=== PATIENT | male | born 1970 | race Caucasian/White ===

== ENCOUNTER → 2018-09-16 | Outpatient (CLI) | payer OTHER ==
[~2018-09-16] MED LIST: ALLEGRA30 MG PO; BENTYL 10 MG CA10 MG PO; PROTONIX PO
== END ==
LOC: M.CT 09:00
DX: Z13.6 Encounter for screening for cardiovascular disorders (principal); R91.1 Solitary pulmonary nodule

== ENCOUNTER → 2018-09-30 | Outpatient (CLI) | payer OTHER | LOC: M.CT 07:22 | DX: R91.1 Solitary pulmonary nodule (principal); J98.4 Other disorders of lung ==

== ENCOUNTER → 2019-03-26 | Outpatient (CLI) | payer OTHER | LOC: M.CT 07:57 | DX: D71 Functional disorders of polymorphonuclear neutrophils (principal); R91.8 Other nonspecific abnormal finding of lung field ==

== ENCOUNTER → 2020-10-10 | Outpatient (CLI) | payer OTHER | LOC: M.CT 12:34 | PROVIDERS: ATTEND Family Medicine | DX: J84.10 Pulmonary fibrosis, unspecified (principal); R91.1 Solitary pulmonary nodule; J98.4 Other disorders of lung ==